=== PATIENT | male | born 1950 | race Two or more races ===

== ENCOUNTER 2022-11-05 18:04 | Emergency (ER) | payer OTHER ==
[~2022-11-05] VITALS: Ht 172.7 cm; Wt 99.8 kg
[~2022-11-05 18:04] MED LIST: LOVAPOW
[2022-11-05] MEDS ORDERED: LIDOCAINE 1% HCL (LOCAL ANESTH.) INJ 20ML MDV ONE (18:41)
[2022-11-05] MEDS ORDERED: LIDOCAINE 1% HCL (LOCAL ANESTH.) INJ 20ML MDV ID ONE (18:45)
[2022-11-05] MEDS: ONDANSETRON HCL 4 MG/2 ML VIAL IV ONE ×2 (19:03→21:00)
[2022-11-05] MEDS ORDERED: MORPHINE SULFATE 4 MG/ML SYR/VIAL IV ONE (19:15)
[2022-11-05] MEDS ORDERED: ceFAZolin 2 GM/D5W100ml 100 ML IV ONE (19:15)
[2022-11-05] MEDS ORDERED: ceFAZolin 1GM/50ML 100 ML IV ONE (20:52)
[2022-11-05 22:36] VITALS: BP 116/74
== END 2022-11-05 23:38 | disposition short-term general hospital (02) ==
LOC: ER 18:06
DX: S61.012A Laceration without foreign body of left thumb without damage to nail, initial encounter (principal); E11.9 Type 2 diabetes mellitus without complications; E78.5 Hyperlipidemia, unspecified; W26.9XXA Contact with unspecified sharp object(s), initial encounter; Y93.89 Activity, other specified; Y92.89 Other specified places as the place of occurrence of the external cause; Y99.8 Other external cause status
CPT/HCPCS: 73130; 82962; 96365; 96366; 96375; 99285; J0690; J2001; J2270; J2405